=== PATIENT | male | born 1970 | race African-American/Black ===

== ENCOUNTER 2016-10-28 23:45 | Emergency (ER) | payer OTHER ==
[~2016-10-28] VITALS: Ht 175.3 cm; Wt 99.8 kg
--- NOTE | 2016-10-28 23:45 | NUR ---
Patient was BIB [place] [employer] and taken to OF.
[2016-10-28 23:48] VITALS: BP 160/90
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
--- NOTE | 2016-10-29 00:20 | NUR ---
Patient ambulated back to OF from XRAY with [place] [employer] officer.
--- NOTE | 2016-10-29 01:00 | NUR ---
Patient discharged with v/s stable. Written and verbal after care instructions given and explained. Patient verbalized understanding. Ambulatory with steady gait. All questions addressed prior to discharge. Advised to follow up with PMD.
--- NOTE | 2016-10-29 01:00 | NUR ---
PATIENT BIB [employer]. PATIENT EXAMINED BY DR. NUNEZ. PATIENT MEDICALLY CLEARED AND RELEASED IN CUSTODY IN STABLE CONDITION. ORIGINAL PRE-BOOK FORM GIVEN TO [employer].
[2016-10-29 01:01] VITALS: BP 160/90
== END 2016-10-29 01:00 ==
LOC: MED 23:45
DX: R07.89 Other chest pain (principal); R05 Cough; J45.909 Unspecified asthma, uncomplicated; Z88.0 Allergy status to penicillin; Z88.6 Allergy status to analgesic agent; Z87.891 Personal history of nicotine dependence
CPT/HCPCS: 71010; 99283